=== PATIENT | female | born 1950 | race Caucasian/White ===

== ENCOUNTER 2023-10-08 07:34 | Outpatient (CLI) | payer MEDICARE | END 2023-10-08 07:35 | disposition home or self-care (01) | LOC: CSHULT 07:34 | PROVIDERS: ATTEND Family Medicine | DX: Z12.2 Encounter for screening for malignant neoplasm of respiratory organs (principal); Z87.891 Personal history of nicotine dependence; R10.13 Epigastric pain | CPT/HCPCS: 71271; 76700 ==

== ENCOUNTER 2024-02-10 16:51 | Emergency (ER) | payer MEDICARE | END 2024-02-10 19:20 | disposition home or self-care (01) | LOC: CSHERS 16:51 | DX: S93.402A Sprain of unspecified ligament of left ankle, initial encounter (principal); S76.012A Strain of muscle, fascia and tendon of left hip, initial encounter; E03.9 Hypothyroidism, unspecified; I25.2 Old myocardial infarction; X50.0XXA Overexertion from strenuous movement or load, initial encounter; Y93.89 Activity, other specified; Z79.899 Other long term (current) drug therapy | CPT/HCPCS: 99283 ==